=== PATIENT | female | born 2000 | race Caucasian/White ===

== ENCOUNTER 2021-02-16 10:59 | Emergency (ER) | payer OTHER, SELFPAY ==
--- NOTE | ~2021-02-16 | CT_ITS ---
EXAMINATION: CT SOFT TISSUE NECK WITH CONTRAST CLINICAL INFORMATION: Swelling. Evaluate for peritonsillar abscess. COMPARISON: None TECHNIQUE: Following the intravenous administration of 60 mL of Omnipaque 350 intravenous contrast, helical imaging was performed in the axial plane with generation of coronal and sagittal reformatted images. This CT examination was performed using dose optimization techniques as appropriate, variously including the following: *Automated exposure control *Adjustment of mA and/or kV according to patient size (this includes techniques or standardized protocols for targeted exams where dose is matched to indication/reason for exam; i.e. extremities or head) *Use of iterative reconstruction technique DLP: 433 mGy-cm FINDINGS: There is a 1.5 x 1.5 x 2 cm area of heterogeneous low-attenuation in the right peritonsillar region suggestive of a peritonsillar abscess. The epiglottis is normal. The larynx is normal. The trachea is normal. Salivary glands are normal. There is shotty cervical lymphadenopathy. The visualized orbits are normal. The visualized paranasal sinuses, mastoid air cells and middle ears are clear. The temporomandibular joints are normal. No dental abscess is seen. The thyroid gland is normal. The superior mediastinum is normal. The lung apices are clear. Visualized intracranial structures are normal. Bony structures are normal. CT/CT soft tissue neck w con IMPRESSION: Heterogeneous low-attenuation in the right peritonsillar region suggestive of a small left peritonsillar abscess. This measures approximately 1.5 x 1.5 x 2 cm.
[2021-02-16 11:07] VITALS: BP 119/68; PULSE 110; RESP 18; TEMP 38.2; O2SAT 99; BMI 21.2
--- NOTE | 2021-02-16 11:16 | PC.NURSE ---
pt bl tonsils appear to be swollen and red, r>l. moved to room 3 for better physician exam.
[2021-02-16 11:17] VITALS: O2SAT 98
[2021-02-16 12:04] LABS: MANUAL DIFF FLAG NO
[2021-02-16 12:08] LABS: Basophils Percent Auto 0.3 % (0-2); Hematocrit 38.9 % (37-47); Hemoglobin 13.7 g/dl (12.0-16.0); Imm Gran Abs Auto 0.04 X10*3/uL (0.00-0.03); Imm Gran Pct Auto 0.4 % (0.0-0.4); Lymphocytes Percent Auto 11.5 % (20-40); Mean Corpuscular HGB Conc 35.2 g/dl (31.0-35.0); Mean Corpuscular Hemoglobin 32.2 pg (27.0-33.0); Mean Corpuscular Volume 91.5 fL (80-98); Mean Platelet Volume 10.9 fL (9.4-12.3); Monocytes Absolute Auto 0.8 X10*3/uL (0.1-1.2); Monocytes Percent Auto 9.4 % (2-11); Neutrophils Percent Auto 78.4 % (45-73); Platelet Count 144 X10*3/uL (160-400); Red Blood Count 4.25 X10*6/uL (4.20-5.50); Red Cell Distribution Width 11.6 % (11.0-16.0)
[2021-02-16] MEDS: 0.9 % Sodium Chloride 1,000 ML 999 ML IVCONT ×2 (12:14→13:47)
[2021-02-16] MEDS: Clindamycin Phosphate/D5W 900 MG/50 ML PIGGYBACK 50 MG IV (12:14)
[2021-02-16] MEDS: Ketorolac Tromethamine 30 MG/ML VIAL IVPUSH (12:14)
[2021-02-16 12:24] LABS: Lactic Acid 0.9 mmol/L (0.5-2.0)
[2021-02-16 12:28] LABS: Anion Gap 11 (12-20); Carbon Dioxide 26 mmol/L (22-29); Chloride 100 mmol/L (96-108); Creatinine Clr Calc Pharmacy 89.1; Estimated Glomerular Filt Rate > 60; Glucose Random 129 mg/dL (60-115); Magnesium 2.3 mg/dL (1.6-2.6); Potassium 3.4 mmol/L (3.3-5.1); Sodium 134 mmol/L (135-145)
[2021-02-16 12:35] LABS: Monotest Negative (Negative)
[2021-02-16 12:39] LABS: COVID-19 Test Negative (Negative); IDNOW Serial# 9DD0AD1C
[2021-02-16 12:49] VITALS: BP 131/77; PULSE 92; RESP 18; O2SAT 99
--- NOTE | 2021-02-16 13:35 | ED.GENADULT ---
HPI - General Adult General Chief complaint: Upper Respiratory Symptoms Stated complaint: sore throat, fever Time Seen by Provider: 02/16/21 11:47 Source: patient Mode of arrival: ambulatory Limitations: no limitations History of Present Illness HPI narrative: 20 y/o female presenting with 4 days of worsening sore throat. She has been having fever, chills, painful swallowing and difficulty eating and drinking. She has not eating since yesterday. She drank some water this morning but that is all. She reports a garbled voice with neck pain, right worse than left. She reports lethargy and sleeping excessively for the last 4 days. No known exposure to COVID. No SOB or chest pain. MD complaint: sore throat Onset (ago): day(s) (4) Location: mouth and neck Radiation: neck Severity: severe Severity scale (1-10): 10 Quality: stabbing, aching and constant Pain Consistency: constant Relieving factors: cold therapy Exacerbating factors: eating Associated symptoms: cough, fever/chills, headaches, loss of appetite, malaise and weakness Treatments prior to arrival: none Related Data Previous Rx's Medication Instructions Recorded clindamycin HCl 300 mg PO Q6H 7 Days #28 cap 02/16/21 ibuprofen 600 mg PO Q8H PRN #20 tab 02/16/21 Allergies Allergy/AdvReac Type Severity Reaction Status Date / Time divalproex sodium Allergy Mild HIVES Verified 02/16/21 16:34 [From [facility]] Review of Systems Review of Systems: Constitutional: + Fever, + Chills ENT/Mouth: + sore throat, No Rhinorrhea, + Swallowing Difficulty Eyes: No Eye Pain, No Swelling, No Redness Cardiovascular: No Chest Pain, No SOB, No Orthopnea, No Edema Respiratory: + Cough, No Sputum, No Wheezing, No dyspnea Gastrointestinal: + Nausea, No Vomiting, No Diarrhea, No abdominal Pain Genitourinary: No Dysuria, No Urinary Frequency, No Hematuria Musculoskeletal: No joint pain, No Myalgias Skin: No Skin Lesions, No rash Neuro: + Weakness, No Numbness, No Dizziness, + Headache Psych: No Anxiety/Panic, No Depression Heme/Lymph: No Bruising, No Lymphadenopathy Endocrine: No Polyuria, No Polydipsia PMFSH Past Medical History Attestation statement: The following information was validated with the patient. Medical History No known health problems Social History Social History Alcohol intake: never Smoking Status: Never smoker Use of substances other than those prescribed or required for medical reasons: No Advance Directives: No Advance Directives Information Provided: No Physical Exam Vital Signs: Vital Signs: Last Vital Signs Temp 97.7 F 02/16/21 16:00 Pulse 86 02/16/21 16:00 Resp 16 02/16/21 16:00 BP 99/51 L 02/16/21 16:00 Pulse Ox 99 02/16/21 16:00 Body Mass Index 21.2 Appearance: Alert. Oriented X3. No acute distress. Eyes: Pupils equal, round and reactive to light. ENT: Pharynx with severe bilateral tonsillar swelling and exudate, right greater than left. tonsils are kissing centrally. unable to visualize uvula. mucus membranes are moist. Neck: Normal inspection. Neck with submandibular tenderness bilaterally without appreciable LAD. trachea midline CVS: tachycardic, regular rhythm. Pulses normal. Respiratory: No respiratory distress. Breath sounds normal. Abdomen: Soft and nontender. +BS x4 Skin: Skin warm and dry. Normal skin color. Normal skin turgor. No rashes. Extremities: No lower extremity edema. Neuro: Oriented X 3. No motor deficit. No sensory deficit. Ambulates with steady gait Course Course Course Narrative: 20 y/o female presenting with severe sore throat, difficulty eating and drinking and fevers. Tonsils are severely swollen, touching centrally with severe exudates. Concern for possible peritonsillar abscess, however less likely given it is bilateral. Will check for Sterling, COVID and send blood cultures. IV clindamycin, IV decadron, IV toradol and IVF ordered. Will get CT scan of the neck for further assessment on anatomy and possible abscess. Reevaluation(s) Reevaluation #1: No leukocytosis. Lactic acid is normal. Fevers and pain improved after Toradol. CT scan delayed due to awaiting HCG. Reevaluation #2: CT scan showing small 1.5 x 1.5 x 2 cm right sided peritonsillar abscess. She is tolerating PO. Size is small and does not require emergent drainage. Will treat conservatively with oral antibiotics and anti-inflammatories with strict instructions to go to the ER if symptoms worse. Stable for d/c. Medical Decision Making Lab Data Result diagrams: 02/16/21 11:59 02/16/21 11:59 Labs: Lab Results 02/16/21 02/16/21 02/16/21 Range/Units 11:59 11:59 11:59 WBC 9.0 (4.8-10.8) X10*3/uL RBC 4.25 (4.20-5.50) X10*6/uL Hgb 13.7 (12.0-16.0) g/dl Hct 38.9 (37-47) % MCV 91.5 (80-98) fL MCH 32.2 (27.0-33.0) pg MCHC 35.2 H (31.0-35.0) g/dl RDW 11.6 (11.0-16.0) % Plt Count 144 L (160-400) X10*3/uL MPV 10.9 (9.4-12.3) fL Immature Gran % (Auto) 0.4 (0.0-0.4) % Neut % (Auto) 78.4 H (45-73) % Lymph % (Auto) 11.5 L (20-40) % Sterling % (Auto) 9.4 (2-11) % Eos % (Auto) 0.0 (0-4) % Baso % (Auto) 0.3 (0-2) % Lymph # (Auto) 1.0 L (1.2-4.9) X10*3/uL Sterling # (Auto) 0.8 (0.1-1.2) X10*3/uL Eos # (Auto) 0.0 (0.0-0.4) X10*3/uL Baso # (Auto) 0.0 (0.0-0.2) X10*3/uL Abs Immat Gran (auto) 0.04 H (0.00-0.03) X10*3/uL Absolute Neuts (auto) 7.0 (2.0-8.3) X10*3/uL Absolute Nucleated RBC 0.000 (0.0-0.012) X10*3/uL Nucleated RBC % (auto) 0.0 (0.0-0.2) /100WBC Sodium 134 L (135-145) mmol/L Potassium 3.4 (3.3-5.1) mmol/L Chloride 100 (96-108) mmol/L Carbon Dioxide 26 (22-29) mmol/L Anion Gap 11 L (12-20) BUN 8 L (9-16) mg/dL Creatinine 0.84 (0.5-1.4) mg/dL Estim Creat Clear Calc 89.1 Estimated GFR > 60 Random Glucose 129 H (60-115) mg/dL Lactic Acid 0.9 (0.5-2.0) mmol/L Calcium 9.0 (8.4-10.2) mg/dL Magnesium 2.3 (1.6-2.6) mg/dL Beta HCG, Quant < 2 mIU/mL Urine Color Urine Appearance Urine pH (5.0-8.0) Ur Specific Winthrop (1.005-1.025) Urine Protein (NEG-TRACE) MG/DL Urine Glucose (UA) (NEG) MG/DL Urine Ketones (NEG) MG/DL Urine Blood (NEG) Urine Nitrite (NEG) Ur Leukocyte Esterase (NEG) Urine RBC (0) /HPF Urine WBC (0-4) /HPF Ur Squamous Epith Cells /LPF Urine Bacteria /LPF Urine Mucus /LPF COVID-19 (DEEPTI) (Negative) COVID-19 Clin Com Monoscreen (Negative) 02/16/21 02/16/21 02/16/21 Range/Units 11:59 12:13 13:46 WBC (4.8-10.8) X10*3/uL RBC (4.20-5.50) X10*6/uL Hgb (12.0-16.0) g/dl Hct (37-47) % MCV (80-98) fL MCH (27.0-33.0) pg MCHC (31.0-35.0) g/dl RDW (11.0-16.0) % Plt Count (160-400) X10*3/uL MPV (9.4-12.3) fL Immature Gran % (Auto) (0.0-0.4) % Neut % (Auto) (45-73) % Lymph % (Auto) (20-40) % Sterling % (Auto) (2-11) % Eos % (Auto) (0-4) % Baso % (Auto) (0-2) % Lymph # (Auto) (1.2-4.9) X10*3/uL Sterling # (Auto) (0.1-1.2) X10*3/uL Eos # (Auto) (0.0-0.4) X10*3/uL Baso # (Auto) (0.0-0.2) X10*3/uL Abs Immat Gran (auto) (0.00-0.03) X10*3/uL Absolute Neuts (auto) (2.0-8.3) X10*3/uL Absolute Nucleated RBC (0.0-0.012) X10*3/uL Nucleated RBC % (auto) (0.0-0.2) /100WBC Sodium (135-145) mmol/L Potassium (3.3-5.1) mmol/L Chloride (96-108) mmol/L Carbon Dioxide (22-29) mmol/L Anion Gap (12-20) BUN (9-16) mg/dL Creatinine (0.5-1.4) mg/dL Estim Creat Clear Calc Estimated GFR Random Glucose (60-115) mg/dL Lactic Acid (0.5-2.0) mmol/L Calcium (8.4-10.2) mg/dL Magnesium (1.6-2.6) mg/dL Beta HCG, Quant mIU/mL Urine Color DARK YELLOW Urine Appearance HAZY Urine pH 7.0 (5.0-8.0) Ur Specific W[place]rop 1.025 (1.005-1.025) Urine Protein 1+ H (NEG-TRACE) MG/DL Urine Glucose (UA) NEG (NEG) MG/DL Urine Ketones 15 (NEG) MG/DL Urine Blood 1+ H (NEG) Urine Nitrite NEG (NEG) Ur Leukocyte Esterase NEG (NEG) Urine RBC 5-9 H (0) /HPF Urine WBC 1-4 (0-4) /HPF Ur Squamous Epith Cells 2+ /LPF Urine Bacteria NONE /LPF Urine Mucus 1+ /LPF COVID-19 (DEEPTI) Negative (Negative) COVID-19 Clin Com See Note Monoscreen Negative (Negative) Discharge Plan Discharge Clinical Impression: Abscess, peritonsillar Patient Disposition: Home, Self-Care Instructions: Peritonsillar Abscess (ED) Additional Instructions: Your Strep, COVID and Sterling tests were negative. Your CT scan showed a small abscess near your right tonsil. You are being treated with antibiotics and anti-inflammatories for this. Take the medications as directed. Use warm salt water gargles several times per day. Recommend Chloraseptic Blanchard and Cepacol lozenges, both found over the counter to help numb the back of your throat. Rest and stay hydrated. If you have worsening pain, inability to eat, drink or open your mouth, swallow your own saliva recommend going to [facility] emergently for Ear, Nose and Throat Doctor evaluation. Prescriptions: New clindamycin HCl 300 mg capsule 300 mg PO Q6H 7 Days Qty: 28 RF: 0 ibuprofen 600 mg tablet 600 mg PO Q8H PRN (Reason: fever or pain) Qty: 20 RF: 0 Stand Alone Forms: Work/School Release
[2021-02-16 14:01] LABS: Glucose Urine UA NEG (NEG); Leukocyte Esterase Urine NEG (NEG); Nitrite Urine NEG (NEG); Specific Gravity - Urine 1.025 (1.005-1.025); Urine Blood 1+ (NEG); Urine Ketones 15 MG/DL (NEG); Urine Protein 1+ MG/DL (NEG-TRACE)
[2021-02-16 14:04] LABS: Appearance Urine HAZY; Color Urine DARK YELLOW
--- NOTE | 2021-02-16 14:08 | PC.NURSE ---
pt appears to be agitated about wait time for ct scan, asking to leave. provider and this rn at bedside to educate pt about risk of present issue. pt agreeable to stay att.
[2021-02-16 14:11] LABS: Squamous Epithelial Cell Urine 2+ /LPF
[2021-02-16 14:12] LABS: Mucus Urine 1+ /LPF
[2021-02-16 15:47] VITALS: BP 104/50; PULSE 80; RESP 18; TEMP 36.8; O2SAT 98
[2021-02-16 16:00] VITALS: BP 99/51; PULSE 86; RESP 16; TEMP 36.5; O2SAT 99
[2021-02-16] MEDS: HYDROcodone Bit/Acetam 5/325 TABLET 1 TAB PO (16:29)
--- NOTE | 2021-02-16 16:35 | PC.NURSE ---
Patient resting in bed. Talking on phone. Medicated for pain with PO medication. No issues with swallowing pill. Aware of d/c plan.
[2021-02-16 16:48] LABS: Blood Urea Nitrogen 8 mg/dL (9-16)
[2021-02-16 16:54] LABS: HCG Quantitative < 2 mIU/mL
== END 2021-02-16 17:32 | disposition home or self-care (01) ==
PROVIDERS: Physician Assistant; Emergency Provider Emergency Medicine Emergency Medical Services
DX: J36 Peritonsillar abscess (principal); Z20.822 Contact with and (suspected) exposure to COVID-19
CPT/HCPCS: 36415; 70491; 80048; 81001; 81003; 83605; 83735; 84702; 85025; 86308; 87040; 87071; 87147; 87635; 87880; 96361; 96365; 96368; 96374; 96375; 99284; 99285; J1100; J1885

== ENCOUNTER 2021-04-23 10:01 | Emergency (ER) | payer OTHER, SELFPAY ==
--- NOTE | ~2021-04-23 | XR_ITS ---
EXAMINATION: XR ELBOW, LEFT CLINICAL INFORMATION: Atraumatic left elbow/upper forearm pain COMPARISON: None TECHNIQUE: AP, lateral, and oblique views of the left elbow. FINDINGS: The bones and soft tissues are normal. No fracture or joint effusion. Alignment is anatomic. Joint spaces are maintained. XR/XR elbow LT min 3V IMPRESSION: Normal left elbow.
[2021-04-23 10:09] VITALS: BP 104/61; PULSE 72; RESP 18; TEMP 36.8; O2SAT 98; BMI 23.9
--- NOTE | 2021-04-23 11:46 | ED.UPPEXIN ---
HPI - Extremity Injury (Upper) General Chief Complaint: Extremity Problem Stated Complaint: ARM PAIN Time Seen by Provider: 04/23/21 10:42 Source: patient Mode of arrival: ambulatory Limitations: no limitations History of Present Illness MD complaint: injury to: left, elbow and forearm Onset (ago): hour(s) (Today) Other injuries: none Place: home Severity: mild Relieving factors: none Exacerbating factors: movement of extremity (Extension) Associated symptoms: denies other symptoms Related Data Previous Rx's Medication Instructions Recorded clindamycin HCl 300 mg PO Q6H 7 Days #28 cap 02/16/21 ibuprofen 600 mg PO Q8H PRN #20 tab 02/16/21 lidocaine HCl [Aspercreme 1 appl TOPICAL BID PRN #120 g 04/23/21 (lidocaine HCl)] naproxen 500 mg PO BID PRN #10 tab 04/23/21 Allergies Allergy/AdvReac Type Severity Reaction Status Date / Time divalproex sodium Allergy Mild HIVES Verified 02/16/21 16:34 [From [facility]] Review of Systems Review of Systems: Constitutional : No changes in activity, No lethargy, No recent prior head injury, No agitation, No increased fussiness ENT/Mouth : No Ear Pain, No Nasal discharge/drainage Eyes: No Eye Pain, No Swelling, No Redness, No Foreign Body, No Vision Changes Cardiovascular : No Chest Pain, No SOB Respiratory : No Cough Gastrointestinal : No Nausea, No Vomiting, No abdominal Pain Genitourinary : No Dysuria, No Urinary Frequency, No Urinary Incontinence, No Urgency, No Flank Pain Musculoskeletal : + joint pain, No neck stiffness, No back pain/injury Skin : No lacerations Neuro : No unsteady gait, No Paresthesias, No Loss of Consciousness, No altered mental status, No Headache Yes all other systems are reviewed and are negative PMFSH Past Medical History Attestation statement: The following information was validated with the patient. Medical History No known health problems Social History Social History Alcohol intake: never Advance Directives: Yes Advance Directives Information Provided: Yes Advance Directives on File: No Patient : No Physical Exam Vital Signs: Vital Signs: Last Vital Signs Temp 98.3 F 04/23/21 10:09 Pulse 72 04/23/21 10:09 Resp 18 04/23/21 10:09 BP 104/61 04/23/21 10:09 Pulse Ox 98 04/23/21 10:09 Body Mass Index 23.9 vital signs have been reviewed as normal and appeared to be correct. Blood pressure normal. Heart rate normal. Respiration rate normal. Temperature normal. Oxygen saturation normal. Appearance: Alert. Oriented X3. No acute distress. Head: Normal external exam. Normocephalic. Atraumatic. Eyes: PERRLA. EOMI. Conjunctiva and sclera normal. Eyelids normal. ENT: Pharynx normal. Uvula midline. Moist mucous membranes. Neck: Normal inspection. Neck supple. FROM. No adenopathy.No meningeal signs. CVS: Normal heart rate and rhythm. Heart sound normal. Pulses normal throughout. No murmurs/rales/gallops. Respiratory: No respiratory distress. Painless inspiration. Breath sounds normal. No wheezes/rales/rhonchi noted. Chest nontender. No accessory muscle usage noted or decreased air movement noted. Back: Full range of motion noted. Skin: Skin warm and dry. Normal skin color. Normal skin turgor. No rashes/lesions/lacerations noted. Extremities: Patient with mild tenderness to palpation to left elbow at the olecranon process no signs of infection no laxity and patient has full range of motion. No upper or lower extremity edema noted. Otherwise all other Extremities exhibit normal range of motion and nontender. Neuro: Oriented X 3. No motor deficit. No sensory deficit. Reflexes normal. Normal steady gait. No focal neuro deficits noted. Vascular: + radial pulses. Normal cap refill. No cyanosis noted to upper extremity nails and lower extremity toes nails. Course Course Course Narrative: 20-year-old female with atraumatic left elbow pain that started prior to arrival. Will obtain x-ray if negative will DC home with symptomatic treatment instructions return if any new or worsening symptoms. Patient understands agrees with this plan. MDM - Extremity Injury (Upper) Medical Records Attestation: I reviewed the patient's medical records. Imaging Data Left elbow x-ray: Attestation: I personally reviewed and interpreted this imaging study as follows: Radiologist's impression: FINDINGS: The bones and soft tissues are normal. No fracture or joint effusion. Alignment is anatomic. Joint spaces are maintained. XR/XR elbow LT min 3V IMPRESSION: Normal left elbow. Discharge Plan Discharge Clinical Impression: Strain of elbow, left Patient Disposition: Home, Self-Care Instructions: Elbow Sprain (ED) Prescriptions: New lidocaine HCl [Aspercreme (lidocaine HCl)] 4 % cream 1 appl topical BID PRN (Reason: pain) Qty: 120 RF: 0 naproxen 500 mg tablet 500 mg PO BID PRN (Reason: pain) Qty: 10 RF: 0 No Action clindamycin HCl 300 mg capsule 300 mg PO Q6H 7 Days Qty: 28 RF: 0 ibuprofen 600 mg tablet 600 mg PO Q8H PRN (Reason: fever or pain) Qty: 20 RF: 0 Referrals: Physician,Unknown [Primary Care Provider] - 2 days Stand Alone Forms: Work/School Release Print Language: Citizen Of [place]
== END 2021-04-23 12:03 | disposition home or self-care (01) ==
PROVIDERS: Emergency Provider Emergency Medicine Emergency Medical Services
DX: S56.912A Strain of unspecified muscles, fascia and tendons at forearm level, left arm, initial encounter (principal); X58.XXXA Exposure to other specified factors, initial encounter; Y93.9 Activity, unspecified; Y92.9 Unspecified place or not applicable; Y99.9 Unspecified external cause status
CPT/HCPCS: 73080; 99283

== ENCOUNTER 2021-10-20 16:21 | Outpatient (REF) | payer OTHER, SELFPAY ==
[2021-10-20 17:13] LABS: Influenza A PCR NEGATIVE (Negative); Influenza B PCR NEGATIVE (Negative); Resp Syncy Virus RNA Qual PCR NEGATIVE (Negative); SARS COV2 PCR INHOUSE POSITIVE (Negative)
== END 2021-10-20 16:22 | disposition home or self-care (01) ==
LOC: HO.LNP 16:21
PROVIDERS: Visit Provider Internal Medicine
DX: R43.9 Unspecified disturbances of smell and taste (principal); Z20.822 Contact with and (suspected) exposure to COVID-19
CPT/HCPCS: 0241U

== ENCOUNTER 2022-11-17 15:39 | Emergency (ER) | payer OTHER, SELFPAY ==
--- NOTE | ~2022-11-17 | XR_ITS ---
EXAMINATION: XR ANKLE, LEFT CLINICAL INFORMATION: Traumatic lateral malleolus pain COMPARISON: None TECHNIQUE: AP, lateral, and mortise views of the left ankle. FINDINGS: There is no fracture or dislocation. The ankle mortise is congruent. Ankle joint effusion present. Lateral soft tissue swelling. XR/XR ankle LT min 3V IMPRESSION: Lateral soft tissue swelling with ankle joint effusion. No fracture or malalignment.
[2022-11-17 16:32] VITALS: BP 112/42; PULSE 77; RESP 20; TEMP 36.6; O2SAT 99; BMI 25.4
--- NOTE | 2022-11-17 16:33 | ED.LOWEXIN ---
HPI - Extremity Injury (Lower) General Chief Complaint: Extremity Problem <Germania Jean-Baptiste CNP - Last Filed: 11/17/22 16:35> Stated Complaint: Ankle injury at work <Germania Jean-Baptiste CNP - Last Filed: 11/17/22 16:35> Time Seen by Provider: 11/17/22 16:47 <Germania Jean-Baptiste CNP - Last Filed: 11/17/22 16:35> History of Present Illness HPI Narrative: patient complains of left ankle injury when she twisted at work 3 days ago, she is able to walk on it but it continues to be painful and is now more swollen, she denies any other injury there is no numbness weakness or tingling no fever <UZAIR Ryder - Last Filed: 11/17/22 18:12> Related Data Home Medications: Previous Rx's Medication Instructions Recorded clindamycin HCl 300 mg capsule 300 mg PO Q6H 7 days #28 caps 02/16/21 ibuprofen 600 mg tablet 600 mg PO Q8H PRN fever or pain 02/16/21 #20 tabs lidocaine HCl 4 % topical cream 1 appl topical BID PRN pain #120 04/23/21 (Aspercreme (lidocaine HCl)) grams naproxen 500 mg tablet 500 mg PO BID PRN pain #10 tabs 04/23/21 ibuprofen 400 mg tablet 400 mg PO Q6H PRN pain #20 tabs 11/17/22 <Germania Jean-Baptiste CNP - Last Filed: 11/17/22 16:35> Allergies/Adverse Reactions: Allergies Allergy/AdvReac Type Severity Reaction Status Date / Time divalproex sodium Allergy Mild HIVES Verified 10/20/21 13:38 [From [facility]] <Germania Jean-Baptiste CNP - Last Filed: 11/17/22 16:35> PMFSH Past Medical History Source: nursing notes reviewed <UZAIR Ryder - Last Filed: 11/17/22 18:12> Medical History: Medical History No known health problems <Germania Jean-Baptiste CNP - Last Filed: 11/17/22 16:35> Social History Social History: Social History Alcohol intake: never Patient Tobacco Use Status: Current someday Tobacco user Advance Directives: No Advance Directives Information Provided: Yes <Germania Oscar MED Jean-Baptiste - Last Filed: 11/17/22 16:35> Physical Exam Vital Signs: Vital Signs: Last Vital Signs Temp 98 F 11/17/22 16:32 Pulse 77 11/17/22 16:32 Resp 20 11/17/22 16:32 BP 112/42 L 11/17/22 16:32 Pulse Ox 99 11/17/22 16:32 O2 Del Method 11/17/22 16:32 BMI result Body Mass Index 25.4 <Germania Oscar MED Jean-Baptiste - Last Filed: 11/17/22 16:35> Vital Signs: Last Vital Signs Temp 98 F 11/17/22 16:32 Pulse 77 11/17/22 16:32 Resp 20 11/17/22 16:32 BP 112/42 L 11/17/22 16:32 Pulse Ox 99 11/17/22 16:32 O2 Del Method 11/17/22 16:32 BMI result Body Mass Index 25.4 <UZAIR Ryder - Last Filed: 11/17/22 18:12> general appearance comfortable no distress Head is normocephalic atraumatic Neck is supple Respiratory no distress Extremities full range of motion x4 including left ankle a left ankle has ecchymosis and bruising distal to the lateral malleolus there is tenderness over the lateral malleolus there is some mild swelling, there is full range of motion, skin is intact and neurovascular intact distal Other extremities normal range of motion The patient can walk with a mild limp <UZAIR Ryder - Last Filed: 11/17/22 18:12> Course Course Course Narrative: This is an RME: Additional HPI, ROS, PE not included below will be deferred to primary provider. Patient is a 22-year-old female who presents to the emergency department for evaluation of ankle pain. She reports Left ankle twisting injury 3 days ago. Pain progressively worsening, with swelling. Pain and swelling predominantly to lateral malleolus. This happened while she was at work. Work is requesting evaluation before her return tomorrow. Denies numbness or tingling to the foot. She has been ambulatory, but pain is made worse with weight-bearing. Plan: XR left Ankle. <Germania Jean-Baptiste CNP - Last Filed: 11/17/22 16:35> This is an RME: Additional HPI, ROS, PE not included below will be deferred to primary provider. Patient is a 22-year-old female who presents to the emergency department for evaluation of ankle pain. She reports Left ankle twisting injury 3 days ago. Pain progressively worsening, with swelling. Pain and swelling predominantly to lateral malleolus. This happened while she was at work. Work is requesting evaluation before her return tomorrow. Denies numbness or tingling to the foot. She has been ambulatory, but pain is made worse with weight-bearing. Plan: XR left Ankle. x-ray of the left ankle was negative Patient wants to return to work and says that her job does not involve any heavy lifting she does drive a vehicle and deliver packages but she says she can not easily step up and down from the vehicle I checked her walking and she is walking with a very mild limp and says she can easily do her tasks so she is cleared to return tomorrow <UZAIR Ryder - Last Filed: 11/17/22 18:12> Discharge Plan Discharge Clinical Impression: Left ankle sprain <Germania Jean-Baptiste CNP - Last Filed: 11/17/22 16:35> Patient Disposition: Home, Self-Care <Germania Jean-Baptiste CNP - Last Filed: 11/17/22 16:35> Additional Instructions: x-ray was normal so no broken bone so you likely have a sprained ankle I observed her walking and you are cleared to return to work Return any time any worse condition or concerns If it is failing to improve follow with orthopedist or [facility] for work related injury <Germania Jean-Baptiste CNP - Last Filed: 11/17/22 16:35> Prescriptions: New ibuprofen 400 mg tablet 400 mg PO Q6H PRN (Reason: pain) Qty: 20 0RF No Action lidocaine HCl [Aspercreme (lidocaine HCl)] 4 % cream 1 appl topical BID PRN (Reason: pain) Qty: 120 0RF naproxen 500 mg tablet 500 mg PO BID PRN (Reason: pain) Qty: 10 0RF clindamycin HCl 300 mg capsule 300 mg PO Q6H 7 Days Qty: 28 0RF ibuprofen 600 mg tablet 600 mg PO Q8H PRN (Reason: fever or pain) Qty: 20 0RF <Germania Jean-Baptiste CNP - Last Filed: 11/17/22 16:35> Referrals: [facility] [Provider Group] ( ankle sprain at work) Maxi Bland MD [Physician] - ( ankle sprain) <Germania Jean-Baptiste CNP - Last Filed: 11/17/22 16:35> Stand Alone Forms: Work/School Release <Germania Jean-Baptiste CNP - Last Filed: 11/17/22 16:35>
--- OUTSIDE RECORDS SUMMARY | 2022-11-17 16:52 | XMS_ITS | Continuity of Care Document ---
:2000 Author Organization [facility] Address [address] [place] [id number]- Care Team Providers Name Role Phone Cole DARBY, Giselle Harris Primary Care Physician [place] [facility] [place]): [place] - 02/18/[address] [id number]- Discharge Disposition: A-D/C Walkout Attending Physician: Not on Staff, Attending MD Admitting Physician: Not on Staff, Admitting MD Referring Physician: Not on Staff, Referring MD Allergies, Adverse Reactions, Alerts Substance Reaction Severity Status Depakote rash, fever Active Medications acetaminophen 500 mg/5 ml oral liquid 4 mL = 400 mg, By Mouth, Every 6 hours, PRN as needed for fever, # 240 mL, 0 Refills, Maintenance,Liquid Start Date: 05/11/11 Status: OrderedFocalin XR 20 mg oral capsule, extended release TAKE ONE CAPSULE BY MOUTH EVERY MORNING Start Date: 05/10/11 Status: Orderedguanfacine 1 mg oral tablet TAKE 1 TABLET BY MOUTH EVERY MORNING ,1/2 TABLET AT 3 PM,AND 1 AND 1/2 TABLETS AT BEDTIME, Soft Stop Start Date: 05/10/11 Status: Orderedhydrocortisone 1% topical cream 1 application, Topically, 2 times a day, # 60 Gm, 0 Refills, Maintenance, 04/03/19 13:30:15 EDT, Cream Start Date: 04/03/19 Stop Date: 04/17/19 Status: Ordered
--- OUTSIDE RECORDS SUMMARY | 2022-11-17 16:52 | XMS_ITS | Continuity of Care Document ---
:2000 Author Organization [facility] Address [address] [place] [id number]- Care Team Providers Name Role Phone Cole DARBY, Giselle Harris Primary Care Physician Encounter [facility] Date(s): 07/16/20 - 07/16/[address] [id number]- [facility] Discharge Disposition: A-D/C Walkout Attending Physician: Not [...]
== END 2022-11-17 18:37 | disposition home or self-care (01) ==
PROVIDERS: Emergency Provider Emergency Medicine
DX: S93.402A Sprain of unspecified ligament of left ankle, initial encounter (principal); X50.1XXA Overexertion from prolonged static or awkward postures, initial encounter; Y93.9 Activity, unspecified; Y92.9 Unspecified place or not applicable; Y99.9 Unspecified external cause status; Z79.899 Other long term (current) drug therapy; F17.210 Nicotine dependence, cigarettes, uncomplicated; Z71.6 Tobacco abuse counseling
CPT/HCPCS: 73610; 99282; 99283

== ENCOUNTER 2023-10-29 12:05 | Outpatient (AMB) | payer OTHER, SELFPAY ==
[2023-10-29 13:55] VITALS: BP 110/70; PULSE 92; TEMP 36.3; O2SAT 98; BMI 28.7
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
== END 2023-10-29 15:04 | disposition home or self-care (01) ==
PROVIDERS: Visit Provider Internal Medicine
DX: L03.119 Cellulitis of unspecified part of limb (principal)
CPT/HCPCS: 99213

== ENCOUNTER 2023-12-10 14:58 | Outpatient (AMB) | payer OTHER, SELFPAY ==
[2023-12-10 15:46] VITALS: BP 118/70; PULSE 96; TEMP 36.3; O2SAT 99; BMI 26.4
--- NOTE | 2023-12-10 15:46 | MHC.OFFWIV ---
Intake Vital Signs 12/10/23 15:46 Height 5 ft Weight 135 lb BMI 26.4 BP 118/70 Blood Pressure Location Lt brachial Position Sitting Pulse 96 Pulse Source Pulse Oximeter Temp 97.3 F Temp Source Temporal Artery Scan Pulse Oximetry (%) 99 Oxygen Delivery Method Room Air Intake Visit Reasons: EP Cough,cough, stuffy nose [phone] Intake Note: pt is here today for cough stuffy nose started 4 days ago Patient Tobacco Use Status: Never used Tobacco Allergies divalproex sodium [From [facility]] Allergy (Mild, Verified 12/10/23 16:01) HIVES Do you need a note to return to daycare/school/sports/work: Yes HPI HPI Comments History of Present Illness Details Patient presents to the walk-in today with complaints of cough and congestion for last 4 days States sister was sick with same, and throbbing the ER and was diagnosed with flu and pneumonia Patient denies shortness of breath, dyspnea, chest pain, weakness, chills, anorexia, nausea, vomiting syncope, dizziness Tolerating p.o. Reports that she is feeling better than she had been the last couple of days Has been out of work, works in [employer] and they gave her the week off. She does not PFSH Medical History No known health problems Social History Alcohol intake: never Patient Tobacco Use Status: Never used Tobacco Review of Systems Const All systems reviewed & are unremarkable except as noted in HPI and below Physical Exam Vital Signs: Last Vital Signs Temp 97.3 F 12/10/23 15:46 Pulse 96 12/10/23 15:46 BP 118/70 12/10/23 15:46 Pulse Ox 99 12/10/23 15:46 Oxygen Delivery Method Room Air 12/10/23 15:46 BMI result Body Mass Index 26.4 General: awake, alert, oriented. Answers questions appropriately. Fully engaged in examination. Skin: warm, dry, intact HEENT: TMs intact bilaterally, without erythema or exudate. Posterior pharynx without erythema or exudate. Sclera without icterus or injection. Cardiac: External chest normal in appearance. Respiratory: LSCTAB. Abdomen: without gross distension. Neurological: Oriented to person, place, time and situation. Thought process intact. Psychiatric: Appropriate mood and affect. Good judgment and insight. Assessment & Plan Assessment & Plan (1) Upper respiratory tract infection: Code(s): J06.9 - Acute upper respiratory infection, unspecified Plan URI, no abx warranted. Known flu contact. Benzonatate 100mg po bid as needed Rest, drink plenty of fluids, tylenol or motrin as needed. Follow up with pcp or in clinic for any new or worsening symptoms. Go to ER for shortness of breath, chest pain, palpitations, weakness, dizziness. Medications: New benzonatate 100 mg PO BID PRN 20 caps 0RF cough Coding Level of Care Code Est Pt Level 4 (05638) Diagnoses Upper respiratory tract infection J06.9
== END 2023-12-10 16:54 | disposition home or self-care (01) ==
PROVIDERS: Visit Provider Registered Nurse Emergency
DX: J06.9 Acute upper respiratory infection, unspecified (principal)
CPT/HCPCS: 99213

== ENCOUNTER 2024-08-07 09:03 | Emergency (ER) | payer OTHER, SELFPAY ==
[2024-08-07 09:09] VITALS: BP 109/68; PULSE 86; RESP 16; TEMP 36.6; O2SAT 99; BMI 24.8
[2024-08-07 10:18] LABS: COVID-19 Test Negative (Negative); IDNOW Serial# 9DB6401D
--- NOTE | 2024-08-07 10:19 | ED.GENADULT ---
HPI - General Adult General Chief complaint: General Medical Stated complaint: Pain rib cage Time Seen by Provider: 08/07/24 09:44 Source: patient and RN notes reviewed Mode of arrival: ambulatory Limitations: no limitations History of Present Illness ED Provider: Elis Duncan PA-C [facility] narrative: This is a 24-year-old female, 9 week , who presents emergency department with complaints of left-sided rib pain which started yesterday. Patient reports that about 3 weeks ago she had an upper respiratory infection. She had congestion, and was coughing frequently. She states that her symptoms have since resolved. She states that since yesterday she has had ongoing left-sided rib pain worsening with movement. She states that she had similar symptoms when she was with her 2nd child. She has been taking Tylenol which has provided her with some relief. She denies any fevers, chills, sharp pleuritic chest pain with deep inspiration, abdominal pain, abnormal vaginal bleeding or discharge. She is currently being followed by her OBGYN at [facility]. No other complaints or concerns at this time. MD complaint: Left-sided rib pain Onset (ago): day(s) Radiation: non-radiation Relieving factors: none Exacerbating factors: none Treatments prior to arrival: none Related Data Previous Rx's ?Medication ?Instructions ?Recorded benzonatate 100 mg capsule 100 mg PO BID PRN cough #20 caps 12/10/23 Allergies Allergy/AdvReac Type Severity Reaction Status Date / Time divalproex sodium Allergy Mild HIVES Verified 08/07/24 09:12 [From [facility]] Review of Systems Review of Systems: Yes all other systems are reviewed and are negative Constitutional: Constitutional: Reports as per [facility] Past Medical History Attestation statement: The following information was validated with the patient. Medical History No known health problems Social History Social History Alcohol intake: never Patient Tobacco Use Status: Never used Tobacco Advance Directives: No Advance Directives Information Provided: Yes Physical Exam ED Vital Signs: Vital Signs - 24 hr 08/07/24 09:09 Temperature 97.8 F Pulse Rate 86 Respiratory Rate 16 Blood Pressure 109/68 Pulse Oximetry 99 Oxygen Delivery Method Room Air BMI result Body Mass Index 24.8 Const General: cooperative, comfortable and no acute distress Orientation/consciousness: patient oriented x3 Limitations: no limitations HENMT Head: Yes normal to inspection, Yes normocephalic and Yes atraumatic Ears: hearing grossly normal bilaterally General nose exam: Normal external nose present Face and sinus: Yes normal facial exam Mouth: Normal oral and palatal mucosa present, oropharynx normal and moist mucous membranes Throat: Yes posterior oropharynx normal Eyes General: appearance normal, both eyes and all related structures Eyelids: Yes eyelids normal Conjunctivae: conjunctivae normal Sclerae: sclerae normal Pupils: Equal, round and reactive pupils present EOM: EOMs intact bilaterally Neck Neck: Yes normal visual inspection, Yes full ROM and Yes no lymphadenopathy Lymphatic: no lymphadenopathy noted Chest Other: Left lateral chest wall with tenderness palpation, no bony step-off or deformity. No overlying skin changes or warmth. Chest palpation & inspection: normal inspection of the chest Resp Effort & Inspection: normal respiratory effort and able to speak in complete sentences Auscultation: clear to auscultation bilaterally, no crackles, no rales, no rhonchi and no wheezes Cardio Rate: regular rate Rhythm: regular rhythm Heart sounds: S1 normal heart sound present and S2 normal heart sound present GI Inspection: Yes normal to inspection Skin General skin exam: no rashes or lesions noted Trauma: no lacerations or abrasions Wounds: no wounds Neuro General: patient oriented x3 and moves all extremities Cranial nerves: Yes Equal, round and reactive pupils present Extrem General: Yes normal to inspection Right upper extremity: normal to inspection Left upper extremity: normal to inspection Right lower extremity: normal to inspection Left lower extremity: normal to inspection Medical Decision Making Medical Decision Making MDM Narrative: This is a 24-year-old female who presents emergency department with complaints of left-sided rib pain since yesterday. She is currently 9 weeks , and had similar symptoms when she was with her 2nd child. She has no shortness a breath. On arrival, vital signs within normal limits. Lungs are clear to auscultation bilaterally. She recently had a cold-like illness which caused her to cough frequently. Her symptoms are likely attributed to a costochondritis like picture. She is not hypoxic or tachycardic to suggest pulmonary embolism. Her lungs are clear to auscultation therefore pneumothorax is unlikely. She has no exquisite point tenderness on examination to suggest rib fracture. Patient will be discharged with incentive spirometer, given strict return precautions. Advised to follow-up with her OBGYN. She understands and agrees with plan. Patient stable for discharge Differential Diagnosis Differential Diagnoses: The differential diagnosis associated with the presentation includes See above Lab Data MDM Lab Attestation statement: I reviewed the patient's lab results. COVID swab Beta quant was ordered out in triage, this was reviewed, within typical range of 9 week individual. No beta quant available for comparison. Labs: Lab Results 08/07/24 Range/Units 09:43 Beta HCG, Quant [id number] mIU/mL COVID-19 (DEEPTI) Negative (Negative) COVID-19 Clin Com See Note Discharge Plan Discharge Clinical Impression: Rib pain on left side Patient Disposition: Home, Self-Care Instructions: Costochondritis (ED) Additional Instructions: You wre seen in the ER for left sided rib pain. You may have strained the muscles in your chest wall from being sick. Your COVID test was negative. Please continue to take tylenol as directed as needed for pain. Ice, gentle stretching, massage can help. If any new or worsening symptoms occur including but not limited to severe chest pain, shortness of breath, abdominal pain, vaginal discharge or discharge, please seek emergent care. Prescriptions: No Action benzonatate 100 mg capsule 100 mg PO BID PRN (Reason: cough) Qty: 20 0RF Stand Alone Forms: Work/School Release Discharge Date/Time: 08/07/24 10:43 Print Language: Romansh
[2024-08-07 10:28] LABS: HCG Quantitative 47087 mIU/mL
== END 2024-08-07 10:43 | disposition home or self-care (01) ==
PROVIDERS: Emergency Provider Student in an Organized Health Care Education/Training Program
DX: O99.511 Diseases of the respiratory system complicating pregnancy, first trimester (principal); Z3A.09 9 weeks gestation of pregnancy; M94.0 Chondrocostal junction syndrome [Tietze]; R05.9 Cough, unspecified; R07.81 Pleurodynia; R09.89 Other specified symptoms and signs involving the circulatory and respiratory systems; Z79.899 Other long term (current) drug therapy; Z11.52 Encounter for screening for COVID-19
CPT/HCPCS: 84702; 87635; 94010; 99281; 99283